=== PATIENT | female | born 1995 | race Caucasian/White ===

== ENCOUNTER 2018-12-11 19:09 | Emergency (ER) | payer SELFPAY ==
[~2018-12-11] VITALS: Ht 162.6 cm; Wt 85.0 kg
[2018-12-11 19:18] VITALS: BP 131/83
--- NOTE | 2018-12-11 19:18 | NUR ---
PT PRESENTS TO ED WITH DIARRHEA X1 WK. NO PAIN AT THIS TIME BUT HAS MILD BILAT LOWER QUADRANT ABD CRAMBPING PRIOR TO BM. STATES BLOOD PRESENT ONLY WHEN WIPING AFTER BM. STATES FEELING GENERALLY WELL. NO N/V, NO FATIGUE. PT IS CONCERNED THAT SHE CONTINUES TO HAVE WATERY STOOL. SHE IS CONSUMING LARGE QUANTITIES OF FLUIDS AT HOME. VSS. POSITIONED IN BED FOR COMFORT. ER MD AWARE. CONTINUE TO MONITOR.
--- NOTE | 2018-12-11 19:18 | NUR ---
TO BED #08 AMBULATORY
[2018-12-11] MEDS ORDERED: DICYCLOMINE HCL LIQUID 10 MG/5 ML UDC PO ONE (19:55)
[2018-12-11 20:13] LABS: APPEARANCE,URINE HAZY (CLEAR); BILIRUBIN,URINE NEGATIVE (NEGATIVE); BLOOD, URINE TRACE-I (NEGATIVE); COLOR,URINE YELLOW (YELLOW); NITRITE, URINE NEGATIVE (NEGATIVE); UGLUCOSE NEGATIVE (NEGATIVE)
[2018-12-11 20:14] LABS: LEUKOCYTE ESTERASE ,URINE NEGATIVE (NEGATIVE)
[2018-12-11 20:14] LABS: BASOPHILS % (AUTO) 0.6 % (0.0-2.0); EOSINOPHILS # (AUTO) 0.1 K/uL (0-0.4); EOSINOPHILS % (AUTO) 1.3 % (0.0-4.0); HEMATOCRIT 41.2 % (36-48); HEMOGLOBIN 13.9 g/dL (12.0-16.0); LYMPHOCYTES # (AUTO) 1.7 K/uL (2.5-16.5); LYMPHOCYTES % (AUTO) 27.8 % (20.5-51.1); MEAN CORPUSCULAR HEMOGLOBIN 30 pg (27-31); MEAN CORPUSCULAR HGB CONC 34 g/dL (33-37); MEAN CORPUSCULAR VOLUME 89.3 fL (80-94); MONOCYTES # (AUTO) 0.8 K/uL (0.8-1.0); MONOCYTES % (AUTO) 13.1 % (1.7-9.3); NEUTROPHILS # (AUTO) 3.6 K/uL (1.8-7.7); NEUTROPHILS % (AUTO) 57.2 % (42.2-75.2); PLATELET COUNT (AUTO) 223 K/uL (140-450); RED BLOOD CELL COUNT(AUTO) 4.62 MIL/uL (4.20-5.40); RED CELL DISTRIBUTION WIDTH 13.4 % (11.6-13.7); WHITE BLOOD COUNT (AUTO) 6.2 K/uL (4.8-10.8)
[2018-12-11 20:23] LABS: ANION GAP 12.4 (8-16); CARBON DIOXIDE 26.9 mmol/L (21-32); CREATININE 0.7 mg/dL (0.6-1.3); POTASSIUM 4.3 mmol/L (3.5-5.1)
[2018-12-11 20:29] LABS: ALBUMIN 3.4 g/dL (3.4-5.0); TOTAL BILIRUBIN 0.4 mg/dL (0.0-1.0)
[2018-12-11 21:20] VITALS: BP 128/76
--- NOTE | 2018-12-11 21:22 | NUR ---
DISCHARGE PAPERS GIVEN TO PT. 0/10 PAIN. NO N/V. VSS. INSTRUCTED ON AFTER CARE, TO F/U WITH PCP AND WHEN TO RETURN TO ER. PT VERBALLIZED UNDERSTANDING OF DC INSTRUCTIONS. ALL QUESTIONS ANSWERED.
== END 2018-12-11 21:22 | disposition home or self-care (01) ==
LOC: MED 19:09
DX: T62.8X1A Toxic effect of other specified noxious substances eaten as food, accidental (unintentional), initial encounter (principal); K52.1 Toxic gastroenteritis and colitis; Y92.89 Other specified places as the place of occurrence of the external cause
CPT/HCPCS: 36415; 80053; 81003; 81025; 83690; 85025; 99283

== ENCOUNTER 2022-02-05 00:05 | Emergency (ER) | payer SELFPAY ==
[~2022-02-05] VITALS: Ht 162.6 cm; Wt 90.7 kg
[2022-02-05 00:14] VITALS: BP 133/84
[2022-02-05] MEDS ORDERED: LORazepam 1 MG TAB PO ONE (00:45)
[2022-02-05] MEDS ORDERED: diphenhydrAMINE 50 MG CAP PO ONE (00:45)
[2022-02-05 01:30] VITALS: BP 133/84
--- NOTE | 2022-02-05 01:30 | NUR ---
Patient discharged with v/s stable. Written and verbal after care instructions given and explained. Patient verbalized understanding. Ambulatory with steady gait. All questions addressed prior to discharge. Advised to follow up with PMD.
== END 2022-02-05 01:30 | disposition home or self-care (01) ==
LOC: MED 00:05
DX: F41.0 Panic disorder [episodic paroxysmal anxiety] (principal)
CPT/HCPCS: 81025; 99283; Q0163

== ENCOUNTER 2022-03-25 13:12 | Emergency (ER) | payer SELFPAY ==
[~2022-03-25] VITALS: Ht 162.6 cm; Wt 90.7 kg
[2022-03-25 13:29] VITALS: BP 150/102
--- NOTE | 2022-03-25 15:03 | NUR ---
PT C/O PALPITATIONS, ANXIETY X1 MONTH WITH INTERMITTENT SOB.
[2022-03-25 15:04] LABS: BASOPHILS # (AUTO) 0.1 K/uL (0.00-0.22); BASOPHILS % (AUTO) 0.4 % (0.0-2.0); EOSINOPHILS % (AUTO) 0.1 % (0.0-4.0); HEMOGLOBIN 14.4 g/dL (12.0-16.0); LYMPHOCYTES # (AUTO) 1.7 K/uL (2.5-16.5); LYMPHOCYTES % (AUTO) 12.6 % (20.5-51.1); MEAN CORPUSCULAR HEMOGLOBIN 30 pg (27-31); MEAN CORPUSCULAR HGB CONC 33 g/dL (33-37); MEAN CORPUSCULAR VOLUME 91.4 fL (80-94); MONOCYTES # (AUTO) 0.8 K/uL (0.8-1.0); NEUTROPHILS # (AUTO) 10.8 K/uL (1.8-7.7); NEUTROPHILS % (AUTO) 80.9 % (42.2-75.2); PLATELET COUNT (AUTO) 244 K/uL (140-450); RED BLOOD CELL COUNT(AUTO) 4.81 MIL/uL (4.20-5.40); RED CELL DISTRIBUTION WIDTH 13.9 % (11.6-13.7); WHITE BLOOD COUNT (AUTO) 13.4 K/uL (4.8-10.8)
[2022-03-25 15:19] LABS: ALBUMIN 4.9 g/dL (3.4-5.0); ANION GAP 17.1 (8-16); CARBON DIOXIDE 21.5 mmol/L (21-32); CREATININE 0.9 mg/dL (0.6-1.3); POTASSIUM 4.6 mmol/L (3.5-5.1); TOTAL BILIRUBIN 0.9 mg/dL (0.0-1.0)
--- NOTE | 2022-03-25 15:53 | NUR ---
Patient discharged with v/s stable. Written and verbal after care instructions given and explained. Patient verbalized understanding. Ambulatory with . All questions addressed prior to discharge. Advised to follow up with PMD.
== END 2022-03-25 15:53 | disposition home or self-care (01) ==
LOC: MED 13:12
DX: F41.9 Anxiety disorder, unspecified (principal)
CPT/HCPCS: 36415; 80053; 81002; 81025; 85025; 93005; 99284